=== PATIENT | female | born 1945 | race Caucasian/White ===

== ENCOUNTER 2022-01-31 04:09 | Inpatient (IN) | payer BC ==
[2022-01-31] VITALS (12 sets, daily range): BP systolic 79–154; BP diastolic 53–92
[~2022-01-31] VITALS: Ht 165.1 cm; Wt 86.0 kg
[~2022-01-31 04:09] MED LIST: AMLO2.5T5 PO; APIX5TAB3 PO; METO50TA17 PO
[2022-01-31 05:05] LABS: ALANINE AMINOTRANSFERASE 71 U/L (12-78); ALBUMIN 2.4 G/DL (3.4-5.0); ALBUMIN/GLOBULIN RATIO 0.6 (1.1-1.5); ALKALINE PHOSPHATASE 70 IU/L (46-116); ANION GAP 7 (8-16); ASPARTATE AMINO TRANSFERASE 49 U/L (10-37); BILIRUBIN,TOTAL 0.4 MG/DL (0.1-1.0); BLOOD UREA NITROGEN 15 MG/DL (7-18); BUN/CREATININE RATIO 13.9 (6.6-38.0); CALCIUM 8.3 MG/DL (8.5-10.1); CHLORIDE 102 MMOL/L (99-107); CREATININE 1.08 MG/DL (0.40-0.90); GLUCOSE 106 MG/DL (70-104); POTASSIUM 3.6 MMOL/L (3.5-5.1); SODIUM 136 MMOL/L (135-145); TOTAL CARBON DIOXIDE 26.8 MMOL/L (24-32); TOTAL PROTEIN 6.6 G/DL (6.4-8.2); eGFR 49 ML/MIN
[2022-01-31 05:07] LABS: BASOPHILS % (AUTO) 0.3 % (0-1); EOSINOPHILS # (AUTO) 0.1 X10'3 (0-0.9); EOSINOPHILS % (AUTO) 2.8 % (0-6); HEMATOCRIT 33.1 % (35.0-45.0); HEMOGLOBIN 11.2 g/dl (12.0-16.0); LYMPHOCYTES # (AUTO) 0.7 X10'3 (1.1-4.8); LYMPHOCYTES % (AUTO) 14.5 % (21-51); MEAN CORPUSCULAR HEMOGLOBIN 31.6 PG (27.0-31.0); MEAN CORPUSCULAR HGB CONC 33.9 g/dL (33.0-36.5); MEAN CORPUSCULAR VOLUME 93.2 FL (78-98); MEAN PLATELET VOLUME 7.5 FL (7.4-10.4); MONOCYTES # (AUTO) 0.4 X10'3 (0-0.9); MONOCYTES % (AUTO) 8.8 % (2-12); NEUTROPHILS # (AUTO) 3.5 X10'3 (1.8-7.7); NEUTROPHILS % (AUTO) 73.6 % (42-75); PLATELET COUNT 413 X10'3 (140-440); RED BLOOD COUNT 3.55 X10'6 (4.20-5.60); RED CELL DISTRIBUTION WIDTH 13.8 % (11.5-14.5); WHITE BLOOD COUNT 4.8 X10'3 (4.5-11.0)
--- NOTE | 2022-01-31 06:57 | NUR ---
Pt to commode with SBA from movie writer. On 4L O2 NC and satting mid 90's. No bloody sputums for last several hours. HR in 80's-90's at rest. A&Ox4.
[2022-01-31] MEDS ORDERED: apixaban 5mg tablet PO ONE (07:35)
[2022-01-31] MEDS ORDERED: etomidate 2mg/ml inj. ONE (08:00)
[2022-01-31] MEDS ORDERED: rocuronium 10mg/ml inj IV ONE (08:00)
[2022-01-31] MEDS ORDERED: sod chloride 0.9% 10ml flush syringe IV ONE (08:00)
[2022-01-31] MEDS ORDERED: LIDOcaine 2% jelly 6ml syringe ***for topical use only ONE (08:00)
[2022-01-31] MEDS ORDERED: iohexol 350MG/ML 100ml bottle IV ONE (09:08)
--- NOTE | 2022-01-31 09:35 | NUR ---
PT off l[place] to CT via wheelchair.
--- NOTE | 2022-01-31 12:20 | NUR ---
PT had episode bloody hemoptysis - blood bright red. MD notified. Orders pending. Satting low 91-92% on 2L NC.
[2022-01-31] MEDS ORDERED: morphine 4 MG/ML inj SYRINge IV PRN (13:30)
[2022-01-31] MEDS ORDERED: POTASSIUM BICARB 20meq eff tab 20 MEQ TABLET.EFF PO PRN ×2 (13:30)
[2022-01-31] MEDS ORDERED: morphine 2 MG/ML inj. syringe IV PRN (13:30)
[2022-01-31] MEDS ORDERED: ondansetron/PF 4mg/2ml inj IV PRN (13:30)
[2022-01-31] MEDS ORDERED: LIDOcaine 2% 10ml TOPICAL JELLY (Urojet) TP ONE (13:30)
[2022-01-31] MEDS ORDERED: potassium CL 10mEq/100ml bag 100 ML IV PRN (13:30)
[2022-01-31] MEDS ORDERED: acetaminophen 325mg tablet PO PRN ×2 (13:30)
[2022-01-31] MEDS ORDERED: magnesium hydroxide 30ml (MOM) UD suspension PO PRN (13:30)
[2022-01-31] MEDS ORDERED: heparin 10,000 units/1 ML INJ IV PRN (13:40)
--- NOTE | 2022-01-31 13:45 | NUR ---
Pt yelled into hallway, "Help. Need help!". Sleeve Presser Operator responded immediately and found patient continuing to throw up blood, satting 71-73% on 5L NC, breath sounds wet and gasping out that she was unable to breath. Charge and ER provider notified, oxygen increased, and preparations for intubation made. Oxygen switched to venturi antonella and patient satting high 80's after. Roof Mechanic came to see pt at bedside at this time and requested pt to be transferred to ICU for likely intubation. Transferred with RT, RN, and immigration coordinator. Family notified.
[2022-01-31 14:00] LABS: HEMATOCRIT 35.9 % (35.0-45.0); HEMOGLOBIN 11.6 g/dl (12.0-16.0); MEAN CORPUSCULAR HEMOGLOBIN 30.4 PG (27.0-31.0); MEAN CORPUSCULAR HGB CONC 32.3 g/dL (33.0-36.5); MEAN CORPUSCULAR VOLUME 94.1 FL (78-98); MEAN PLATELET VOLUME 7.1 FL (7.4-10.4); PLATELET COUNT 516 X10'3 (140-440); RED BLOOD COUNT 3.81 X10'6 (4.20-5.60); RED CELL DISTRIBUTION WIDTH 13.7 % (11.5-14.5); WHITE BLOOD COUNT 4.7 X10'3 (4.5-11.0)
[2022-01-31] MEDS ORDERED: succinylcholine 20mg/ml inj IV ONE (14:20)
[2022-01-31] MEDS ORDERED: etomidate 2mg/ml inj. IV ONE (14:20)
[2022-01-31] MEDS ORDERED: midazolam 1 mg/ML 2ml injection ONE ×3 (14:27→14:29)
--- NOTE | 2022-01-31 14:30 | NUR ---
Patient brought up from ED with x3 RN and RT, needing intubation. Dr. Page bedside and intubated. 20 of Etomidate and 30 of Rocuronium given. Patient intubated and saturation was in the 70s, patient bagged and saturation improved to 90s. RT stated that bagging felt really resistive. Patient was placed on the ventilator and was only getting tidal volumes of 90mls. Patient was placed back on the ambubag and Dr. Page prepared for central line placement in the right IJ. As he was checking he noticed that the patient had crepitus. Stat chest xray was ordered to rule out pneumothorax. Chest xray didn't have a significant pneumothorax per Dr. Page. Right IJ was then placed. Patient was then prepared for bronchoscopy. Prior to bronchoscopy the patient's brother came in and asked for the patient's cell phone and keys so that he could feed her pets. Consent was signed. Bronchoscopy was then performed however there was some sort of blockage sitting on the akila and down both mainstem bronchi. Attempts were made to remove it however, unsuccessful.
[2022-01-31] MEDS: propofol 1000mg/100ml bottle 100 ML IV SCH ×3 (14:38→22:02)
[2022-01-31] MEDS: acetylcysteine 200 MG/ml 4ml vial INH SCH ×6 (14:50→23:22)
[2022-01-31 15:15] LABS: TRIGLYCERIDES 82 MG/DL (20-135)
--- NOTE | 2022-01-31 15:22 | NUR ---
Emergent bedside bronch at bedside for copious bloody mucus plugs, RT Nikunj assist ventilation via ambu bag., RT Yesenia to setup bronch, bronch at bedside unable to aspirate large plugs visualized on bronchoscope placed pt on vent unable to ventilate due to high pk psi, RT Nikunj assist ventilation via ambu bag., place central line at bedside, subcutaneous emphysema noted. Set up for video assist bronchoscopy with basket retrival at bedside, abg drawn, critical results reported to . Stat orders for mucomyst given, at bedside administered 3ml 600mg acetelcystein via ETT. PT placed on vent tolerated with pk psi 31-36 at this time. Addendum: 01/31/22 at 1545 by Yesenia Healy RT Amended: Links added.
[2022-01-31 15:33] LABS: ABG BASE EXCESS -5.8 mmol/L (-2.0-2.0); ABG HCO3 23.1 mmol/L (22.0-26.0); ABG OXYGEN SATURATION 99.6 % (94-97); ABG PO2 (T) 444.9 mmHg (75.0-100.0); ALLEN'S TEST POSITIVE; FCOHb 0.3 % (0.0-3.9); FLOW 15 L/min; FMetHb 0.5 % (0.0-1.5); FO2Hb 98.8 % (94-97); PATIENT TEMPERATURE 37.4; RESPIRATORY RATE 22 b/min; TOTAL HEMOGLOBIN 12.6 G/dl (12.0-16.0)
--- NOTE | 2022-01-31 18:37 | NUR ---
Post bedside bronch Pt VS stable, PT returned to same vent settings, reported off to RT Sunshine at bedside to resume care of patient at this time. Addendum: 01/31/22 at 1840 by Yesenia Healy RT Amended: Links added.
--- NOTE | 2022-01-31 18:38 | NUR ---
Patient in room CICU 2014. I have received report from SIMBA Butcher and had the opportunity to ask questions and assume patient care.
--- NOTE | 2022-01-31 18:45 | NUR ---
Dr. Novoa bedside breaking up and suctioning out clots from both lungs. Bronchoscopy started at 1635 and stopped at 1835. Several large clots pulled from bilateral lungs. Patient tolerated well.
[2022-01-31] MEDS ORDERED: APIX5TAB3 PO (18:49)
--- NOTE | 2022-01-31 18:49 | NUR ---
Problems reprioritized. Patient report given, questions answered & plan of care reviewed with SIMBA Rudd and SIMBA Haynes.
--- NOTE | 2022-01-31 19:00 | NUR ---
Family Communication -Pt's family at bedside. Updated on plan of care and questions answered.
[2022-01-31] MEDS: heparin 25,000 UNIT/250ml bag 250 ML IV PRN (19:11)
[2022-01-31] MEDS: ipratropium/albuterol 3ml nebule NEB PRN ×2 (19:44→23:22)
[2022-01-31] MEDS: sennosides/docusate sodium tablet PO SCH (20:49)
[2022-01-31] MEDS: famotidine/PF 10 mg/ml inj IV SCH (20:49)
[2022-02-01] VITALS (34 sets, daily range): BP systolic 97–131; BP diastolic 50–68
[2022-02-01 01:35] LABS: BASOPHILS % (AUTO) 0.2 % (0-1); EOSINOPHILS % (AUTO) 0.4 % (0-6); HEMATOCRIT 29.3 % (35.0-45.0); HEMOGLOBIN 9.8 g/dl (12.0-16.0); LYMPHOCYTES # (AUTO) 0.6 X10'3 (1.1-4.8); LYMPHOCYTES % (AUTO) 7.1 % (21-51); MEAN CORPUSCULAR HEMOGLOBIN 31.2 PG (27.0-31.0); MEAN CORPUSCULAR HGB CONC 33.4 g/dL (33.0-36.5); MEAN CORPUSCULAR VOLUME 93.4 FL (78-98); MEAN PLATELET VOLUME 6.9 FL (7.4-10.4); MONOCYTES # (AUTO) 0.4 X10'3 (0-0.9); MONOCYTES % (AUTO) 5.2 % (2-12); NEUTROPHILS # (AUTO) 7.4 X10'3 (1.8-7.7); NEUTROPHILS % (AUTO) 87.1 % (42-75); PLATELET COUNT 429 X10'3 (140-440); RED BLOOD COUNT 3.14 X10'6 (4.20-5.60); RED CELL DISTRIBUTION WIDTH 13.6 % (11.5-14.5); WHITE BLOOD COUNT 8.5 X10'3 (4.5-11.0)
[2022-02-01 01:54] LABS: ALBUMIN 2.1 G/DL (3.4-5.0); ANION GAP 11 (8-16); BLOOD UREA NITROGEN 21 MG/DL (7-18); BUN/CREATININE RATIO 25.6 (6.6-38.0); CALCIUM 8.1 MG/DL (8.5-10.1); CHLORIDE 104 MMOL/L (99-107); CREATININE 0.82 MG/DL (0.40-0.90); GLUCOSE 119 MG/DL (70-104); MAGNESIUM 2.3 MG/DL (1.5-2.4); PHOSPHORUS 4.6 MG/DL (2.3-4.5); SODIUM 140 MMOL/L (135-145); TOTAL CARBON DIOXIDE 24.8 MMOL/L (24-32); TRIGLYCERIDES 73 MG/DL (20-135); eGFR 68 ML/MIN
[2022-02-01 03:19] LABS: ABG BASE EXCESS 0.7 mmol/L (-2.0-2.0); ABG HCO3 24.2 mmol/L (22.0-26.0); ABG PCO2 (T) 35.9 mmHg (32.0-45.0); ABG PO2 (T) 88.3 mmHg (75.0-100.0); FCOHb 0.2 % (0.0-3.9); FMetHb 0.5 % (0.0-1.5); FO2Hb 95.3 % (94-97); PATIENT TEMPERATURE 37.8; PEEP 5 cm H2O; RESPIRATORY RATE 16 b/min; TIDAL VOLUME 450 mL; TOTAL HEMOGLOBIN 10.6 G/dl (12.0-16.0)
--- NOTE | 2022-02-01 03:20 | NUR ---
Communication -Called Dr. Boykin regarding critical PTT and changes in vent settings. Orders entered.
[2022-02-01] MEDS: propofol 1000mg/100ml bottle 100 ML IV SCH ×4 (04:19→20:01)
--- NOTE | 2022-02-01 06:28 | NUR ---
Problems reprioritized. Patient report given, questions answered & plan of care reviewed with SIMBA Butcher.
[2022-02-01] MEDS: K and/or MAG REPLACEMENT MC SCH (07:18)
[2022-02-01] MEDS: famotidine/PF 10 mg/ml inj IV SCH (07:23)
--- NOTE | 2022-02-01 07:55 | NUR ---
Nutrition consult: Pt admitted w/ respiratory failure and bilateral pulmonary emboli, now intubated and sedated per EMR. Propofol currently at 9.3ml/hr (245kcals). TF recs below in case of expected prolonged intubation. No open wounds per RN skin assessment. LBM 01/29. If extubated, advance to Regular diet. Will continue to monitor. Recs: 1. IF TF; Continuous TF using Vital HP at 55ml/hr goal to provide 1320ml volume, 1320kcals, 116g protein, 1104ml free water. IF Propofol off, advance to 65ml/hr 2. IF TF; additional water flush 100ml Q4H; monitor serum Na 3. IF TF; PALB Q / 4. Daily wts 5. bowel care per rx 6. Advance to Regular diet upon extubation Addendum: 02/01/22 at [address] Amended: Links added.
[2022-02-01] MEDS ORDERED: normal saline 500ml IV soln 500 ML IV ONE (12:50)
[2022-02-01] MEDS: ringers solution, lacted 1,000 ML IV SCH (13:40)
[2022-02-01] MEDS: heparin 25,000 UNIT/250ml bag 250 ML IV PRN (13:42)
[2022-02-01] MEDS: FENTANYL-0.9 % NACL/PF 100 ML IV PRN (13:44)
--- NOTE | 2022-02-01 18:25 | NUR ---
Patient in room CICU 2014. I have received report from Nataliia COTTRELL and had the opportunity to ask questions and assume patient care.
--- NOTE | 2022-02-01 18:26 | NUR ---
Problems reprioritized. Patient report given, questions answered & plan of care reviewed with Agnieszka COTTRELL.
[2022-02-01] MEDS: sennosides/docusate sodium tablet PO SCH (20:05)
[2022-02-02] VITALS (31 sets, daily range): BP systolic 91–144; BP diastolic 45–81
[2022-02-02] MEDS: ringers solution, lacted 1,000 ML IV SCH ×2 (00:13→07:30)
[2022-02-02] MEDS: propofol 1000mg/100ml bottle 100 ML IV SCH ×3 (01:21→12:01)
[2022-02-02 03:54] LABS: ABG BASE EXCESS 0.7 mmol/L (-2.0-2.0); ABG HCO3 23.9 mmol/L (22.0-26.0); ABG OXYGEN SATURATION 94.1 % (94-97); ABG PCO2 (T) 32.3 mmHg (32.0-45.0); ABG PO2 (T) 73.9 mmHg (75.0-100.0); FCOHb 0.2 % (0.0-3.9); FMetHb 0.6 % (0.0-1.5); FO2Hb 93.3 % (94-97); PATIENT TEMPERATURE 36.9; PEEP 5 cm H2O; RESPIRATORY RATE 14 b/min; TIDAL VOLUME 450 mL; TOTAL HEMOGLOBIN 9.2 G/dl (12.0-16.0)
[2022-02-02 06:20] LABS: BASOPHILS % (AUTO) 0.3 % (0-1); EOSINOPHILS # (AUTO) 0.1 X10'3 (0-0.9); EOSINOPHILS % (AUTO) 1.6 % (0-6); HEMATOCRIT 24.2 % (35.0-45.0); HEMOGLOBIN 8.1 g/dl (12.0-16.0); LYMPHOCYTES % (AUTO) 14.6 % (21-51); MEAN CORPUSCULAR HEMOGLOBIN 30.9 PG (27.0-31.0); MEAN CORPUSCULAR HGB CONC 33.3 g/dL (33.0-36.5); MEAN CORPUSCULAR VOLUME 92.7 FL (78-98); MEAN PLATELET VOLUME 7.1 FL (7.4-10.4); MONOCYTES # (AUTO) 0.4 X10'3 (0-0.9); MONOCYTES % (AUTO) 5.9 % (2-12); NEUTROPHILS # (AUTO) 5.4 X10'3 (1.8-7.7); NEUTROPHILS % (AUTO) 77.6 % (42-75); PLATELET COUNT 327 X10'3 (140-440); RED BLOOD COUNT 2.61 X10'6 (4.20-5.60); RED CELL DISTRIBUTION WIDTH 13.9 % (11.5-14.5); WHITE BLOOD COUNT 6.9 X10'3 (4.5-11.0)
--- NOTE | 2022-02-02 06:27 | NUR ---
Problems reprioritized. Patient report given, questions answered & plan of care reviewed with Nataliia COTTRELL.
[2022-02-02 06:41] LABS: ALBUMIN 1.7 G/DL (3.4-5.0); ANION GAP 8 (8-16); BLOOD UREA NITROGEN 11 MG/DL (7-18); BUN/CREATININE RATIO 14.7 (6.6-38.0); CALCIUM 7.2 MG/DL (8.5-10.1); CHLORIDE 109 MMOL/L (99-107); CREATININE 0.75 MG/DL (0.40-0.90); GLUCOSE 87 MG/DL (70-104); MAGNESIUM 2.1 MG/DL (1.5-2.4); POTASSIUM 3.2 MMOL/L (3.5-5.1); SODIUM 142 MMOL/L (135-145); TOTAL CARBON DIOXIDE 24.7 MMOL/L (24-32); eGFR 75 ML/MIN
[2022-02-02] MEDS: famotidine/PF 10 mg/ml inj IV SCH (07:29)
[2022-02-02] MEDS: potassium Cl 20mEq/100mL bag 100 ML IV PRN ×2 (07:30→09:37)
[2022-02-02] MEDS: K and/or MAG REPLACEMENT MC SCH (07:30)
[2022-02-02] MEDS ORDERED: dextrose 50%-water 50ml dispensing syringe IV PRN ×2 (07:40)
[2022-02-02] MEDS ORDERED: dextrose 50%-water 50ml dispensing syringe IV ONE (07:40)
[2022-02-02] MEDS: FENTANYL-0.9 % NACL/PF 100 ML IV PRN (11:02)
[2022-02-02] MEDS: dextrose 5%-lactated ringers 1,000 ML IV SCH ×2 (11:46→21:21)
[2022-02-02] MEDS: heparin 25,000 UNIT/250ml bag 250 ML IV PRN (12:00)
[2022-02-02] MEDS ORDERED: bisacodyl 10mg suppository rectal RC PRN (13:30)
[2022-02-02] MEDS: cefepime 1GM in NS 100mL IVPB IV SCH ×2 (13:58→23:45)
[2022-02-02] MEDS: levoFLOXACIN-Levaquin 750MG/D5 150 ML IV SCH (15:17)
--- NOTE | 2022-02-02 18:31 | NUR ---
Problems reprioritized. Patient report given, questions answered & plan of care reviewed with Gretchen COTTRELL.
[2022-02-02] MEDS: sennosides/docusate sodium tablet PO SCH (21:00)
--- NOTE | 2022-02-02 23:57 | NUR ---
Pt refusing to be turned. She states she is independently shifting her weight frequently and states she cannot get comfortable when turned and propped with pillows. Educated on risks of not turning, including pressure sores and diminished ability to clear lungs. Verbalizes understandign of information given, but continues to refuse to be turned.
[2022-02-03] VITALS (19 sets, daily range): BP systolic 122–165; BP diastolic 58–91
[2022-02-03 02:58] LABS: GLUCOSE 131 MG/DL (70-104); POTASSIUM 3.6 MMOL/L (3.5-5.1); SODIUM 143 MMOL/L (135-145)
[2022-02-03 02:59] LABS: ALBUMIN 1.7 G/DL (3.4-5.0); ANION GAP 6 (8-16); BLOOD UREA NITROGEN 6 MG/DL (7-18); BUN/CREATININE RATIO 7.8 (6.6-38.0); CALCIUM 7.9 MG/DL (8.5-10.1); CHLORIDE 110 MMOL/L (99-107); CREATININE 0.77 MG/DL (0.40-0.90); MAGNESIUM 2.1 MG/DL (1.5-2.4); PHOSPHORUS 2.9 MG/DL (2.3-4.5); TOTAL CARBON DIOXIDE 26.8 MMOL/L (24-32); eGFR 73 ML/MIN
[2022-02-03 03:07] LABS: HEMATOCRIT 23.2 % (35.0-45.0); HEMOGLOBIN 7.8 g/dl (12.0-16.0); WHITE BLOOD COUNT 7.5 X10'3 (4.5-11.0)
[2022-02-03 03:08] LABS: EOSINOPHILS % (AUTO) 1.5 % (0-6); LYMPHOCYTES % (AUTO) 11.5 % (21-51); MEAN CORPUSCULAR HEMOGLOBIN 31.2 PG (27.0-31.0); MEAN CORPUSCULAR HGB CONC 33.7 g/dL (33.0-36.5); MEAN CORPUSCULAR VOLUME 92.8 FL (78-98); MEAN PLATELET VOLUME 6.8 FL (7.4-10.4); MONOCYTES % (AUTO) 5.2 % (2-12); NEUTROPHILS % (AUTO) 81.6 % (42-75); PLATELET COUNT 385 X10'3 (140-440); RED CELL DISTRIBUTION WIDTH 13.7 % (11.5-14.5)
[2022-02-03 03:09] LABS: BASOPHILS % (AUTO) 0.2 % (0-1); EOSINOPHILS # (AUTO) 0.1 X10'3 (0-0.9); LYMPHOCYTES # (AUTO) 0.9 X10'3 (1.1-4.8); MONOCYTES # (AUTO) 0.4 X10'3 (0-0.9); NEUTROPHILS # (AUTO) 6.1 X10'3 (1.8-7.7)
[2022-02-03] MEDS: ipratropium/albuterol 3ml nebule NEB PRN (03:13)
[2022-02-03 04:38] LABS: TRIGLYCERIDES 72 MG/DL (20-135)
--- NOTE | 2022-02-03 06:30 | NUR ---
Patient in room CICU 2014. I have received report from SIMBA Godinez and had the opportunity to ask questions and assume patient care.
[2022-02-03] MEDS: K and/or MAG REPLACEMENT MC SCH (07:16)
[2022-02-03] MEDS: famotidine/PF 10 mg/ml inj IV SCH (07:38)
[2022-02-03] MEDS: dextrose 5%-lactated ringers 1,000 ML IV SCH (07:38)
[2022-02-03] MEDS: cefepime 1GM in NS 100mL IVPB IV SCH ×2 (07:38→16:29)
[2022-02-03] MEDS: levoFLOXACIN-Levaquin 750MG/D5 150 ML IV SCH (08:24)
[2022-02-03] MEDS: heparin 25,000 UNIT/250ml bag 250 ML IV PRN (12:20)
[2022-02-03] MEDS: propofol 1000mg/100ml bottle 100 ML IV SCH (12:25)
--- NOTE | 2022-02-03 16:57 | NUR ---
Problems reprioritized. Patient report given, questions answered & plan of care reviewed with Jaymie, RN.
--- NOTE | 2022-02-03 17:26 | NUR ---
Patient transferred to PCU via wheelchair with primary RN. All belongings left with the patient. Patient specific medication sent with the patient. Patient tolerated transfer well.
--- NOTE | 2022-02-03 17:49 | NUR ---
orientee documentation: I have reviewed and agree with all interventions, assessments performed and documented by Jaymie SAMANIEGO . Orientee Medication Administration: For this medication-pass time frame, all medication were reviewed, dispensed, administered and documented per hospital policy by Jaymie SAMANIEGO .
--- NOTE | 2022-02-03 18:13 | NUR ---
Problems reprioritized. Patient report given, questions answered & plan of care reviewed with Ayo COTTRELL. Patient is resting in bed in no acute distress.
[2022-02-03] MEDS ORDERED: apixaban 5mg tablet PO SCH (20:00)
[2022-02-03] MEDS: sennosides/docusate sodium tablet PO SCH (20:55)
[2022-02-03] MEDS: metoprolol tartrate 50mg tablet PO SCH (20:56)
[2022-02-03] MEDS: amLODIPine 2.5mg tablet PO SCH (21:08)
[2022-02-04] MEDS: cefepime 1GM in NS 100mL IVPB IV SCH ×2 (00:07→09:43)
[2022-02-04 02:00] VITALS: BP 140/64
[2022-02-04 03:19] LABS: BASOPHILS % (AUTO) 0.5 % (0-1); EOSINOPHILS # (AUTO) 0.2 X10'3 (0-0.9); EOSINOPHILS % (AUTO) 2.3 % (0-6); HEMATOCRIT 24.7 % (35.0-45.0); HEMOGLOBIN 8.4 g/dl (12.0-16.0); LYMPHOCYTES # (AUTO) 0.7 X10'3 (1.1-4.8); LYMPHOCYTES % (AUTO) 10.5 % (21-51); MEAN CORPUSCULAR HEMOGLOBIN 30.9 PG (27.0-31.0); MEAN CORPUSCULAR HGB CONC 33.9 g/dL (33.0-36.5); MEAN CORPUSCULAR VOLUME 91.1 FL (78-98); MEAN PLATELET VOLUME 6.8 FL (7.4-10.4); MONOCYTES # (AUTO) 0.4 X10'3 (0-0.9); MONOCYTES % (AUTO) 5.4 % (2-12); NEUTROPHILS # (AUTO) 5.8 X10'3 (1.8-7.7); NEUTROPHILS % (AUTO) 81.3 % (42-75); PLATELET COUNT 395 X10'3 (140-440); RED BLOOD COUNT 2.71 X10'6 (4.20-5.60); RED CELL DISTRIBUTION WIDTH 13.9 % (11.5-14.5); WHITE BLOOD COUNT 7.1 X10'3 (4.5-11.0)
[2022-02-04 03:27] LABS: ALBUMIN 1.8 G/DL (3.4-5.0); ANION GAP 7 (8-16); BLOOD UREA NITROGEN 4 MG/DL (7-18); BUN/CREATININE RATIO 5.5 (6.6-38.0); CALCIUM 7.7 MG/DL (8.5-10.1); CHLORIDE 106 MMOL/L (99-107); CREATININE 0.73 MG/DL (0.40-0.90); GLUCOSE 99 MG/DL (70-104); MAGNESIUM 1.7 MG/DL (1.5-2.4); PHOSPHORUS 2.9 MG/DL (2.3-4.5); POTASSIUM 3.5 MMOL/L (3.5-5.1); SODIUM 139 MMOL/L (135-145); TOTAL CARBON DIOXIDE 25.8 MMOL/L (24-32); eGFR 77 ML/MIN
--- NOTE | 2022-02-04 04:13 | NUR ---
Pt 2000 APTT was 52, it is therapeutic range no change for infusion rate, continue 1100units/h without bolus. at 02:45 AM Aptt was 41, per prptocol 3500 units heparin IV given, increased IV infusion rate from 1100 units/h to 1300 units/hr, 2 RN co-sign it, next due APTT will be 0945 AM, lab order is in [facility], Pt CBC, CMP, Mg, Phos were same time as APTT in the morning 02:45 AM drawn, Lab file conversion operator notified for do not need repeat these lab again.
--- NOTE | 2022-02-04 06:02 | NUR ---
Pt Sao2 dropped to 88 % on RA, set O2 on 2 L then SaO2 up to 95%, continue to closely monitor any change of condition.
--- NOTE | 2022-02-04 06:30 | NUR ---
Patient in room PCU 3014. I have received report from Ayo COTTRELL and had the opportunity to ask questions and assume patient care.
[2022-02-04 07:01] VITALS: BP 157/76
[2022-02-04] MEDS: rivaroxaban 15mg tablet PO SCH ×2 (07:54→20:00)
[2022-02-04] MEDS: metoprolol tartrate 50mg tablet PO SCH ×2 (07:54→22:28)
--- NOTE | 2022-02-04 08:34 | NUR ---
Reassessment: Pt extubated 02/02, placed on MM5 diet 02/03 per PRIMER INSERTING MACHINE OPERATOR recs. Has had 25% of first 2 meals. Pt will need to consume ~67% of meals to be meeting est needs. LBM 01/29 receiving routine senna. Will continue to monitor for further PO trends prior to nutrition intervention. Recs: 1. Continue MM5 diet per PRIMER INSERTING MACHINE OPERATOR recs 2. Monitor need for ONS 3. Bowel care per rx 4. Weekly wts Addendum: 02/04/22 at [address] Amended: Links added.
[2022-02-04] MEDS: levoFLOXACIN-Levaquin 750MG/D5 150 ML IV SCH (09:42)
[2022-02-04] MEDS: famotidine/PF 10 mg/ml inj IV SCH (09:43)
[2022-02-04 11:24] VITALS: BP 125/68
[2022-02-04 14:34] VITALS: BP 133/61
--- NOTE | 2022-02-04 18:16 | NUR ---
Problems reprioritized. Patient report given, questions answered & plan of care reviewed with Ayo COTTRELL.
[2022-02-04 21:00] VITALS: BP 129/61
[2022-02-04] MEDS: sennosides/docusate sodium tablet PO SCH (22:27)
[2022-02-04] MEDS: amLODIPine 2.5mg tablet PO SCH (22:58)
[2022-02-05 02:00] VITALS: BP 131/62
[2022-02-05 06:00] VITALS: BP 147/69
--- NOTE | 2022-02-05 06:44 | NUR ---
bedside report to AM SIMBA Barragan.
[2022-02-05 07:25] LABS: BASOPHILS % (AUTO) 0.4 % (0-1); EOSINOPHILS # (AUTO) 0.1 X10'3 (0-0.9); EOSINOPHILS % (AUTO) 2.9 % (0-6); HEMATOCRIT 24.5 % (35.0-45.0); HEMOGLOBIN 8.3 g/dl (12.0-16.0); LYMPHOCYTES # (AUTO) 0.7 X10'3 (1.1-4.8); MEAN CORPUSCULAR HEMOGLOBIN 31.4 PG (27.0-31.0); MEAN CORPUSCULAR VOLUME 92.4 FL (78-98); MEAN PLATELET VOLUME 6.7 FL (7.4-10.4); MONOCYTES # (AUTO) 0.4 X10'3 (0-0.9); NEUTROPHILS # (AUTO) 3.9 X10'3 (1.8-7.7); NEUTROPHILS % (AUTO) 75.7 % (42-75); PLATELET COUNT 394 X10'3 (140-440); RED BLOOD COUNT 2.65 X10'6 (4.20-5.60); RED CELL DISTRIBUTION WIDTH 13.9 % (11.5-14.5); WHITE BLOOD COUNT 5.1 X10'3 (4.5-11.0)
[2022-02-05] MEDS: rivaroxaban 15mg tablet PO SCH (07:37)
[2022-02-05] MEDS: levoFLOXACIN-Levaquin 750MG/D5 150 ML IV SCH (07:38)
[2022-02-05] MEDS: metoprolol tartrate 50mg tablet PO SCH (07:38)
[2022-02-05] MEDS: famotidine/PF 10 mg/ml inj IV SCH (07:38)
[2022-02-05 07:39] LABS: ALBUMIN 1.8 G/DL (3.4-5.0); ANION GAP 9 (8-16); BLOOD UREA NITROGEN 8 MG/DL (7-18); BUN/CREATININE RATIO 11.3 (6.6-38.0); CALCIUM 7.8 MG/DL (8.5-10.1); CHLORIDE 107 MMOL/L (99-107); CREATININE 0.71 MG/DL (0.40-0.90); GLUCOSE 90 MG/DL (70-104); MAGNESIUM 1.9 MG/DL (1.5-2.4); PHOSPHORUS 2.9 MG/DL (2.3-4.5); POTASSIUM 3.5 MMOL/L (3.5-5.1); SODIUM 142 MMOL/L (135-145); TOTAL CARBON DIOXIDE 25.9 MMOL/L (24-32); eGFR 80 ML/MIN
[2022-02-05] MEDS: ipratropium/albuterol 3ml nebule NEB PRN ×2 (09:36→14:51)
[2022-02-05 11:00] VITALS: BP 141/66
[2022-02-05] MEDS ORDERED: FERR324T4 PO (13:13)
--- NOTE | 2022-02-05 14:20 | NUR ---
sent to Dr. Sanderson [id number] Misti: unable to print discharge. Mily needs to be addressed. thank you.
[2022-02-05] MEDS ORDERED: RIVA20TA PO (14:31)
[2022-02-05] MEDS ORDERED: IPRA3AMP9 NEB (15:13)
--- NOTE | 2022-02-05 15:40 | NUR ---
Discharge instruction discussed with pt. All questions answered. Pt states she understands all information. Discontinued both PIV's per protocol. Pt's brother here to take pt home. Pt leaving unit via wheelchair.
[2022-02-25] MEDS ORDERED: rivaroxaban 20mg tablet PO SCH (18:00)
== END 2022-02-05 16:03 | disposition home health service (06) | DRG 208 ==
LOC: ER 04:10 → ED HOLD 13:40 → CICU 2S 14:32 → PCU 3S 02-03 17:21
PROVIDERS: ADMIT Psychiatry & Neurology Neurocritical Care; ATTEND Psychiatry & Neurology Neurocritical Care
PROC: 5A1945Z Respiratory Ventilation, 24-96 Consecutive Hours (ICD-10-PCS; principal; 2022-01-31)
PROC: 0BH17EZ Insertion of Endotracheal Airway into Trachea, Via Natural or Artificial Opening (ICD-10-PCS; 2022-01-31)
PROC: B32T1ZZ Computerized Tomography (CT Scan) of Left Pulmonary Artery using Low Osmolar Contrast (ICD-10-PCS; 2022-01-31)
PROC: 02HV33Z Insertion of Infusion Device into Superior Vena Cava, Percutaneous Approach (ICD-10-PCS; 2022-01-31)
PROC: 0BJ08ZZ Inspection of Tracheobronchial Tree, Via Natural or Artificial Opening Endoscopic (ICD-10-PCS; 2022-01-31)
PROC: B3201ZZ Computerized Tomography (CT Scan) of Thoracic Aorta using Low Osmolar Contrast (ICD-10-PCS; 2022-01-31)
PROC: B32S1ZZ Computerized Tomography (CT Scan) of Right Pulmonary Artery using Low Osmolar Contrast (ICD-10-PCS; 2022-01-31)
PROC: 0B928ZZ Drainage of Carina, Via Natural or Artificial Opening Endoscopic (ICD-10-PCS; 2022-02-01)
DX: T17.890A Other foreign object in other parts of respiratory tract causing asphyxiation, initial encounter (principal); J96.01 Acute respiratory failure with hypoxia; J18.9 Pneumonia, unspecified organism; I26.99 Other pulmonary embolism without acute cor pulmonale; I21.A1 Myocardial infarction type 2; R04.2 Hemoptysis; I82.403 Acute embolism and thrombosis of unspecified deep veins of lower extremity, bilateral; E87.6 Hypokalemia; X58.XXXA Exposure to other specified factors, initial encounter; D64.9 Anemia, unspecified; I10 Essential (primary) hypertension; Z79.01 Long term (current) use of anticoagulants; Z86.711 Personal history of pulmonary embolism; Z88.0 Allergy status to penicillin; Z91.14 Patient's other noncompliance with medication regimen; Z91.199 Patient's noncompliance with other medical treatment and regimen due to unspecified reason; Z91.048 Other nonmedicinal substance allergy status; Z79.899 Other long term (current) drug therapy; Y93.89 Activity, other specified; Y92.89 Other specified places as the place of occurrence of the external cause; Y99.8 Other external cause status
CPT/HCPCS: 31645; 36415; 36600; 71045; 71275; 76700; 80048; 80053; 82803; 82948; 83605; 83735; 83880; 84100; 84478; 84484; 85018; 85025; 85027; 85730; 86885; 86900; 86901; 87040; 92508; 92616; 93005; 94002; 94003; 94640; 94664; 94668; 94760; 97110; 97161; 97530; 97535; 99291; A4333; A4615; A4628; A6212; A6213; A6250; A6258; A6402; A6449; A7015; C1729; C1751; G0378; J0692; J1644; J1956; J2250; J2704; J3010; J3480; J3490; J7030; J7040; J7120; J7121; Q9967